=== PATIENT | male | born 1955 | race Caucasian/White ===

== ENCOUNTER 2018-01-21 06:52 | Day surgery (SDC) | payer BC ==
[~2018-01-21 06:52] MED LIST: Lactated Ringers 1,000 ML IV SCH
[2018-01-21] MEDS ORDERED: Propofol 200 MG/20 ML SDV ONE (07:48)
[2018-01-21] MEDS ORDERED: fentaNYL 100 MCG/2 ML SDV ONE (07:49)
--- NOTE | 2018-01-21 13:36 | OR ---
PREOPERATIVE DIAGNOSIS: History of polyps. POSTOPERATIVE DIAGNOSIS: Diverticulosis, otherwise normal exam. PROCEDURE PROPOSED: Total flexible colonoscopy. PROCEDURE DONE: Total flexible colonoscopy. INDICATION: This is a 62-year-old gentleman, who comes in for colonic surveillance due to a history of polyps. He has had 2 prior colonoscopies with a polyp removal on the first one. He denies any family history of colon cancer or polyps. TECHNIQUE: The patient was brought to the endoscopy suite. He was sedated per G[employer]REATER with propofol and placed in the left lateral decubitus position. The flexible video colonoscope was then passed transanally and under visualization advanced to the cecum without difficulty. Examination revealed a normal ascending, transverse, and descending colon. The sigmoid colon revealed mild diverticulosis and the rectum was normal. There was no evidence of any polyps, colitis, or other abnormalities and the scope was then withdrawn. The patient tolerated the procedure well. FINAL IMPRESSION: 1. Sigmoid diverticulosis, otherwise normal exam. 2. History of prior polyps. PLAN: The patient should continue with colonic surveillance every 5 years hereafter. SCM: 01/21/2018 08:53:11 MODL: 01/21/2018 11:19:57 /[id number]
== END 2018-01-21 09:25 | disposition home or self-care (01) ==
LOC: VM.SDS 06:52
PROVIDERS: ATTEND Surgery
DX: Z12.11 Encounter for screening for malignant neoplasm of colon (principal); K57.30 Diverticulosis of large intestine without perforation or abscess without bleeding; M54.32 Sciatica, left side; M54.31 Sciatica, right side; H71.91 Unspecified cholesteatoma, right ear; G47.33 Obstructive sleep apnea (adult) (pediatric); Z79.899 Other long term (current) drug therapy; Z86.010 Personal history of colon polyps
CPT/HCPCS: 45378; J2704; J3010; J7120

== ENCOUNTER 2021-04-02 08:10 | Emergency (ER) | payer BC, MEDICARE ==
--- NOTE | 2021-04-02 09:34 | CR ---
[id number] RAD/RAD Chest PA And Lateral EXAM: RAD Chest PA And Lateral INDICATION: COUGH, CHEST CONGESTION. COMPARISON: None. DISCUSSION/IMPRESSION: Left chest wall cardiac conduction device in place. Cardiomediastinal silhouette is normal in size and contour. Lungs are clear. No pleural effusion or pneumothorax. Ward Escalante MD 04/02/21 0932 Thank you for allowing us to participate in the care of your patient.
--- NOTE | 2021-04-02 12:24 | EDM.PDOC ---
ED HPI GENERAL MEDICAL PROBLEM - General Chief Complaint: Respiratory Problem Stated Complaint: COUGH Time Seen by Provider: 04/02/21 09:00 Source of Information: Reports: Patient History Limitations: Reports: No Limitations - History of Present Illness INITIAL COMMENTS - FREE TEXT/NARRATIVE: Pt. presents to ER with complaints of continued cough, occasionally productive, congestion, fever, and body aches. Pt. diagnosed with influenza A 1 week ago. He was tested for covid at that time and was negative. He states that his chest radiographs were negative. Pt. denies any ill contacts. Denies any shortness of breath. No substernal chest pain, jaw, arm, neck or back pain. No nausea, vomiting, or diarrhea. Onset: Today Onset Date: 04/02/21 Associated Symptoms: Reports: Cough - Related Data Allergies Allergy/AdvReac Type Severity Reaction Status Date / Time amoxicillin Allergy Rash Verified 01/21/18 07:18 Home Meds: Home Meds Ascorbic Acid [Vitamin C] 250 mg PO DAILY 01/17/18 [History] Cyanocobalamin (Vitamin B12) [Vitamin B12] 1,000 mcg PO DAILY 01/17/18 [History] Cyclobenzaprine [Flexeril] 10 mg PO TID PRN 01/17/18 [History] Multivitamin [Multiple Vitamins] 1 tab PO DAILY 01/17/18 [History] Omeprazole Magnesium [Prilosec Otc] 10 mg PO DAILY 01/17/18 [History] Past Medical History HEENT History: Reports: Cataract, Hard of Hearing Other HEENT History: vitreous floater-bilateral. vitreous detatchment-right. myopia with astigmatism and presbyopia Cardiovascular History: Reports: High Cholesterol, Pacemaker Respiratory History: Reports: Sleep Apnea Gastrointestinal History: Reports: Colon Polyp, GERD Genitourinary History: Reports: None Musculoskeletal History: Reports: None Neurological History: Reports: None Psychiatric History: Reports: Depression Endocrine/Metabolic History: Reports: None Hematologic History: Reports: None Immunologic History: Reports: None Oncologic (Cancer) History: Reports: None Dermatologic History: Reports: None - Past Surgical History Head Surgeries/Procedures: Reports: None HEENT Surgical History: Reports: None Other Cardiovascular Surgeries/Procedures: pacemaker GI Surgical History: Reports: Colonoscopy Musculoskeletal Surgical History: Reports: None Social & Family History - Tobacco Use Tobacco Use Status *Q: Never Tobacco User - Recreational Drug Use Recreational Drug Use: No ED ROS GENERAL - Review of Systems Review Of Systems: Comprehensive ROS is negative, except as noted in HPI. ED EXAM, GENERAL - Physical Exam Exam: See Below Exam Limited By: No Limitations General Appearance: Alert, WD/WN, No Apparent Distress Ears: Normal External Exam, Normal Canal, Hearing Grossly Normal, Normal TMs Ear Exam: Bilateral Ear: Auricle Normal, Canal Normal, TM normal Nose: Normal Inspection, Normal Mucosa, No Blood Throat/Mouth: Normal Inspection, Normal Lips, Normal Teeth, Normal Gums, Normal Oropharynx, Normal Voice, No Airway Compromise Head: Atraumatic, Normocephalic Neck: Normal Inspection, Supple, Non-Tender, Full Range of Motion Respiratory/Chest: No Respiratory Distress, No Accessory Muscle Use, Decreased Breath Sounds, Rhonchi Cardiovascular: Normal Peripheral Pulses, Regular Rate, Rhythm, No Edema, No JVD, No Murmur Peripheral Pulses: 4+: Radial (L) GI/Abdominal: Soft, Non-Tender, No Distention, No Mass (Male) Exam: Deferred Rectal (Males) Exam: Deferred Back Exam: Normal Inspection, Full Range of Motion Extremities: Normal Inspection, Normal Range of Motion, Non-Tender, No Pedal Edema, Normal Capillary Refill Neurological: Alert, Oriented, CN II-XII Intact, Normal Cognition, Normal Gait, Normal Reflexes, No Motor/Sensory Deficits Psychiatric: Normal Affect, Normal Mood Skin Exam: Warm, Dry, Intact, Normal Color, No Rash Course - Vital Signs Last Recorded V/S: Last Vital Signs Temp 36.9 C 04/02/21 08:52 Pulse 91 04/02/21 08:52 Resp 19 04/02/21 08:52 BP 159/49 H 04/02/21 08:52 Pulse Ox 95 04/02/21 08:52 - Orders/Labs/Meds Labs: Laboratory Tests 04/02/21 Range/Units 08:17 SARS CoV-2 RNA Rapid CLARITZA Negative (NEGATIVE) - Radiology Interpretation Free Text/Narrative:: No obvious infiltrate noted. Departure - Departure Time of Disposition: 10:00 Disposition: Home, Self-Care 01 Clinical Impression: Bronchitis, Influenza - Discharge Information Instructions: Influenza, Adult, [id number], Doxycycline tablets or capsules, Codeine; Promethazine oral solution, Acute Bronchitis, Adult Referrals: Seo,Seng A, PA-C [Primary Care Provider] - Forms: ED Department Discharge Additional Instructions: Doxycycline 100mg 1 twice daily for 10 days Phenergan with codeine 1 tsp (5ml) every 4-6 hours as needed for cough Recheck in clinic in 10-14 days Drink plenty of fluids Sepsis Event Note (ED) - Evaluation Sepsis Screening Result: No Definite Risk - Focused Exam Vital Signs: Vital Signs Temp Pulse Resp BP Pulse Ox 04/02/21 08:52 36.9 C 91 19 159/49 H 95 - Problem List Review Problem List Initiated/Reviewed/Updated: Yes - Assessment/Plan Plan: Doxycycline 100mg 1 twice daily for 10 days Phenergan with codeine 1 tsp (5ml) every 4-6 hours as needed for cough Recheck in clinic in 10-14 days Drink plenty of fluids
== END 2021-04-02 09:29 | disposition home or self-care (01) ==
LOC: VM.ED 08:10
DX: J11.1 Influenza due to unidentified influenza virus with other respiratory manifestations (principal); Z20.822 Contact with and (suspected) exposure to COVID-19; Z88.0 Allergy status to penicillin; Z79.899 Other long term (current) drug therapy
CPT/HCPCS: 71046; 99283-25; U0002

== ENCOUNTER 2021-10-26 12:20 | Emergency (ER) | payer BC ==
[2021-10-26 13:24] LABS: ANION GAP 12.2 mmol/L (5-15); CHLORIDE,CL 104 mmol/L (98-107); ESTIMATED GFR 82 mL/min (>=60); SODIUM,NA 140 mmol/L (136-145)
== END 2021-10-26 13:43 | disposition home or self-care (01) ==
LOC: VM.ED 12:20
DX: R07.89 Other chest pain (principal); R20.0 Anesthesia of skin; R20.2 Paresthesia of skin; K21.9 Gastro-esophageal reflux disease without esophagitis; Z88.0 Allergy status to penicillin; Z79.899 Other long term (current) drug therapy; Z99.0 Dependence on aspirator
CPT/HCPCS: 36415; 71046; 80053; 82550; 83615; 84484; 85025; 86140; 93005; 99284

== ENCOUNTER 2022-07-02 18:00 | Emergency (ER) | payer BC, MEDICARE ==
[2022-07-02] MEDS ORDERED: Acetaminophen/HYDROcodone 325-5 MG Tab PO ONE (18:24)
[2022-07-02] MEDS ORDERED: Take Home: Cyclobenzaprine 10 MG Tab, 4 Tab Pack PO ONE (20:27)
[2022-07-02] MEDS ORDERED: Take Home: Acetaminophen/HYDROcodone 325-5 MG, 5 Tab Pack PO ONE (20:27)
== END 2022-07-02 20:42 | disposition home or self-care (01) ==
LOC: VM.ED 18:00
DX: S42.452A Displaced fracture of lateral condyle of left humerus, initial encounter for closed fracture (principal); E78.00 Pure hypercholesterolemia, unspecified; K21.9 Gastro-esophageal reflux disease without esophagitis; Z95.0 Presence of cardiac pacemaker; Z88.0 Allergy status to penicillin; Z79.899 Other long term (current) drug therapy; W00.0XXA Fall on same level due to ice and snow, initial encounter
CPT/HCPCS: 72100; 73080; 99283; A9270